=== PATIENT | female | born 1975 | race African-American/Black ===

== ENCOUNTER → 2017-11-17 | Emergency (ER) | payer OTHER ==
[~2017-11-17] VITALS: Ht 157.5 cm; Wt 68.0 kg
[~2017-11-17] MED LIST: ATIVAN1 MG PO; CLONAZEPAM1 M1; LEVO-T25 MCG; METOPROLOL SUCC25 MG
== END | disposition home or self-care (01) ==
LOC: ER 03:28
DX: R42 Dizziness and giddiness (principal); F41.0 Panic disorder [episodic paroxysmal anxiety]